=== PATIENT | female | born 1980 | race Hispanic/Latino ===

== ENCOUNTER 2017-04-24 12:36 | Emergency (ER) | payer SELFPAY ==
[2017-04-24 12:55] VITALS: TEMP 98.3
--- NOTE | 2017-04-24 13:16 | ED.PDOC ---
History of Present Illness - General Chief Complaint: Abdominal Pain Stated Complaint: right sided abdominal pain Time Seen by Provider: 04/24/17 13:12 Information Source: patient Exam Limitations: no limitations - History of Present Illness Initial Comments: Yoly Mckeon 36 y/o female stated that she had waxing/waning sharp right sided abdominal pains the last 3 days with watery diarrhea,unable to eat since no appetite and feels she will throw up.No dysuria,blood in stool,no foreign travel.stated she ate cake before getting sick.Also has fever since yesterday Abdominal Pain Onset Location: RUQ, RLQ Pain Radiation: no radiation Quality: sharpness, waxing/waning Timing/Duration: resolved prior to arrival, other - 3 days Associated Symptoms: nausea/vomiting, other - diarrhea Review of Systems - Review of Systems Constitutional: States: no symptoms reported EENTM: States: no symptoms reported Respiratory: States: no symptoms reported Cardiology: States: no symptoms reported Gastrointestinal/Abdominal: States: see HPI Genitourinary: States: no symptoms reported Past Medical History (General) - Patient Medical History Hx Stroke: No Hx Dementia: No Hx Asthma: No Hx of COPD: No Hx Cardiac Disorders: No Hx Congestive Heart Failure: No Hx Hypertension: No Hx Diabetes: No Hx Renal Disease: No Surgical History: other - - Social History Hx Tobacco Use: No Hx Alcohol Use: No - Activities of Daily Living Patient Lives Alone: No - family - Female History Patient is a Female of Child Bearing Age (10 -59 yrs old): Yes Hx Last Menstrual Period: 04/24/17 Patient : No Family Medical History - Family History Mother Family History: Unknown Hx Family Diabetes: Yes - dad Physical Exam - Physical Exam General Appearance: Alert, No apparent distress Eyes, Ears, Nose, Throat Exam: PERRL/EOMI, normal ENT inspection, pharynx normal Neck: non-tender, full range of motion, supple Respiratory: chest non-tender, lungs clear Cardiovascular/Chest: normal peripheral pulses, regular rate, rhythm, no murmur Peripheral Pulses: No deficit Gastrointestinal/Abdominal: normal bowel sounds, soft, tenderness - right side abdomen Back Exam: normal inspection, no CVA tenderness Neurologic: alert, normal mood/affect, oriented x 3 Skin Exam: normal color, warm/dry Progress - Progress Progress: 04/24/17 13:19 Vital Signs 04/24/17 12:39 Temperature 98.3 F Pulse Rate [ 111 H right brachial] Respiratory 16 Rate Blood Pressure 111/77 [right brachial ] O2 Sat by Pulse 97 Oximetry - Results/Orders Results/Orders: Laboratory Tests 04/24/17 04/24/17 04/24/17 13:04 13:09 13:09 WBC 6.2 RBC 4.76 Hgb 8.5 L Hct 28.2 L MCV 59.2 L MCH 17.8 L MCHC 30.1 L RDW 18.4 H Plt Count 178 MPV 10.0 Absolute Neuts (auto) 3.90 Absolute Lymphs (auto) 1.60 Absolute Monos (auto) 0.60 Absolute Eos (auto) 0.10 Absolute Basos (auto) 0.00 Neutrophils % 62.8 Lymphocytes % 25.8 Monocytes % 9.0 Eosinophils % 1.9 Basophils % 0.5 Sodium 142 Potassium 3.5 L Chloride 103 Carbon Dioxide 29 Anion Gap 13.5 BUN 17 Creatinine 0.61 BUN/Creatinine Ratio 27.9 H Random Glucose 94 Serum Osmolality 284.4 Calcium 9.3 Total Bilirubin 0.4 AST 27 ALT 21 Alkaline Phosphatase 54 Serum Total Protein 7.9 Albumin 4.4 Globulin 3.5 Albumin/Globulin Ratio 1.3 Urine Color Yellow Urine Appearance Clear Urine pH 8.5 H Ur Specific [place] 1.015 Urine Protein 30 Urine Glucose (UA) Negative Urine Ketones Trace Urine Blood Negative Urine Nitrite Negative Urine Bilirubin Small H Urine Urobilinogen 1.0 Ur Leukocyte Esterase Negative Urine RBC 0 Urine WBC 1-3 Ur Epithelial Cells 3-5 Urine Bacteria 1+ Urine Mucus Large Departure - Departure Clinical Impression: Anemia due to blood loss, chronic Diarrhea Qualifiers: Diarrhea type: unspecified type Qualified Code(s): R19.7 - Diarrhea, unspecified Abdominal pain Qualifiers: Abdominal location: upper abdomen, unspecified Qualified Code(s): R10.10 - Upper abdominal pain, unspecified Time of Disposition: 14:10 Disposition: Discharge to Home or Self Care Condition: Fair Departure Forms: ED Discharge - Pt. Copy, Patient Portal Self Enrollment Instructions: Diarrhea (Alternative Therapy), Diarrhea, DI for Abdominal Pain- Adult, DI for Menorrhagia, Probiotics May Decrease Intensity and Duration of Diarrhea Due to Infection, Loperamide Diet: other - AVOID GREASY,SPICY ,DAIRY FOODS UNTIL BETTER;NEED TO FOLLOW UP WITH [employer] [facility] for EVALUATION OF HEAVY PERIODS;May Take (otc) Iron pills one daily and vitamins one daily Prescriptions: Ciprofloxacin-Ciprofloxacin Hc [Cipro Xr] 1 tab PO BID #10 tab Promethazine W/Codeine Syr [Phenergan With Codeine Syrup] 10 ml PO TID PRN #100 ml PRN Reason: Pain Home Medications: Ambulatory Orders Ciprofloxacin-Ciprofloxacin Hc [Cipro Xr] 1 tab PO BID #10 tab 04/24/17 Promethazine W/Codeine Syr [Phenergan With Codeine Syrup] 10 ml PO TID PRN #100 ml 04/24/17
[2017-04-24] MEDS ORDERED: LACTATED RINGERS 1,000 ML IVS ONE (13:21)
[2017-04-24] MEDS ORDERED: MORPHINE SULFATE INJ 10 MG/ML VIAL IV ONE (14:07)
[2017-04-24] MEDS ORDERED: levoFLOXacin 500MG IV 500 MG in PREMIX BAG 1 BAG IVPB ONE (14:07)
[2017-04-24] MEDS ORDERED: levoFLOXacin 500MG IV 100 ML IVPB ONE (14:15)
[2017-04-24 15:08] VITALS: O2SAT 99
[2017-04-24 15:45] VITALS: BP 110/69
== END 2017-04-24 15:42 | disposition home or self-care (01) ==
LOC: ER 12:36
DX: R10.10 Upper abdominal pain, unspecified (principal); R19.7 Diarrhea, unspecified; D50.0 Iron deficiency anemia secondary to blood loss (chronic)
CPT/HCPCS: 36415; 80053; 81001; 85025; J1956; J2270; J7120